=== PATIENT | male | born 1955 | race Two or more races ===

== ENCOUNTER 2024-10-29 10:02 | Day surgery (SDC) | payer MEDICARE, OTHER, SELFPAY ==
[2024-10-24 13:11] VITALS: BMI 29.8
[2024-10-29] VITALS (13 sets, daily range): BP systolic 119–156; BP diastolic 69–121; BMI 29.3
--- NOTE | 2024-10-29 11:12 | HP.FOC2 ---
Addendum entered and electronically signed by LINDA Nash 10/29/24 11:27:
Correction: After further review of patient's medications with his present he has been determined that he did take an oral steroid prep for his contrast allergy, stat IV Solu-Cortef canceled.
Original Note:
Focused History & Physical
Chief Complaint
HPI:
Chief Complaint: Peripheral arterial occlusive disease with right lower extremity debilitating claudication
HPI / Indication for Planned Procedure: This is a 69-year-old male with significant past medical history for angina, CABG, peripheral chill disease, type 2 diabetes, stroke, and kidney tumor reported to [facility] for scheduled bilateral
lower extremity angiogram with focus on right lower extremity and left femoral access with Dr. Delio Galaviz III for peripheral arterial disease and debilitating right lower extremity claudication. Patient denies recent hospitalization, trauma,
illness, or changes to medications since last seen in our office on 09/27/2024. Denies nausea, vomiting, fever, chills, cough, chest pain, and abdominal pain. He endorses he is at his baseline health. Of note patient does have a listed contrast dye
allergy with reaction of syncopal episode.
Relevant Past Medical History: Coronary Artery Disease, Diabetes, Hypertension, Stroke and Other (Kidney tumor)
Relevant Social History: Tobacco Use (Former tobacco user)
Relevant Past Surgical History: Positive for (CABG x 4, kidney tumor resection, cervical spine surgery)
Review of Systems
Review of Pertinent Systems: All Systems Negative
Medication
See Medication form for detailed medications: Yes
Medication List (including Herbals & OTC):
amiloride 5 mg tablet 5 mg PO TID 10/23/24
aspirin 81 mg tablet 81 mg PO DAILY 10/23/24
desonide 0.05 % topical cream 1 applic topical PRN PRN eczema 10/23/24
diltiazem HCl 240 mg capsule,extended release 24 hr 240 mg PO DAILY 10/23/24
eplerenone 50 mg tablet 50 mg PO HS 10/23/24
furosemide 40 mg tablet 40 mg PO DAILY 10/23/24
metformin 1,000 mg tablet 1,000 mg PO BID 10/23/24
metoprolol succinate 100 mg tablet,extended release 24 hr 100 mg PO DAILY 10/23/24
pantoprazole 40 mg tablet,delayed release 40 mg PO DAILY 10/23/24
repaglinide 1 mg tablet 1 mg PO TID 10/23/24
rosuvastatin 40 mg tablet 40 mg PO HS 10/23/24
semaglutide 2 mg/dose (8 mg/3 mL) subcutaneous pen injector (Ozempic) 2 mg SC .QSUNDAY 10/23/24
tobramycin 0.3 %-dexamethasone 0.1 % eye drops,suspension 1 drp ophthalmic (eye) HS 10/23/24
valsartan 320 mg tablet 320 mg PO DAILY 10/23/24
clopidogrel 75 mg tablet 75 mg PO DAILY 10/26/24
fluticasone propionate 50 mcg/actuation nasal spray,suspension 1 spray intranasal HSPRN PRN nasal congestion 10/26/24
isosorbide mononitrate 30 mg tablet,extended release 24 hr 30 mg PO HS 10/26/24
nitroglycerin 0.4 mg sublingual tablet 0.4 mg sublingual Q5-15M PRN chest pain 10/26/24
ranolazine 500 mg tablet,extended release,12 hr 500 mg PO BID 10/26/24
terbinafine HCl 1 % topical cream 1 applic topical PRN PRN antifungal 10/26/24
Medications Reviewed: Yes
Allergies and Reactions
Patient has Allergies: Yes
Noted Allergies and Reactions:
Allergy/AdvReac Type Severity Reaction Status Date / Time
Iodinated Contrast Media Allergy Syncopal Verified 10/29/24 11:11
episode
Pertinent Physical Exam
All Other Systems: Negative
Head/Neck: Normal
Lungs: Normal (Bilateral lungs CTA)
Heart: Normal
Abdomen: Normal
Extremities: Other (Nonpalpable distal bilateral pulses)
Neurological: Normal
Diagnosis / Assessment
Assessment: 69-year-old male who presents for scheduled procedure with Dr. Delio Galaviz of bilateral lower extremity angiogram with focus on right lower extremity for claudication and peripheral arterial occlusive disease.
Plan / Procedure
Plan: Will proceed with procedure as scheduled, patient endorses contrast dye allergy and indicates he did not receive any steroid prep but did take Benadryl this a.m., will provide stat IV Solu-Cortef.
Anesthesia/Sedation to be done by Anesthesia Provider: Yes
[2024-10-29 11:20] LABS: Glucose - Point of Care 169 mg/dl (70-99)
[2024-10-29] MEDS: NSS 500 IV (14:23)
--- NOTE | 2024-10-29 17:24 | W.SUR.PREOP ---
Pre-Operative Surgical Note
-
I have examined this patient prior to the performance of the scheduled procedure.
The patient's condition is unchanged from the time of the current History and
Physical and the patient is able to undergo the scheduled procedure.
[2024-10-29 17:47] LABS: Glucose - Point of Care 159 mg/dl (70-99)
--- NOTE | 2024-10-29 18:22 | OR.RPT ---
Operative Report
Operative Report
Date of Operation: 10/29/2024
Pre Op Diagnosis: Disabling bilateral lower extremity claudication
Post Op Diagnosis: Disabling bilateral lower extremity claudication
Procedure:
1.) Drug-coated balloon angioplasty of right superficial femoral artery (6 mm x 220 mm Lutonix DCB)
2.) Balloon angioplasty and stenting of right superficial femoral artery (overlapping Bard Life Stents, 6 mm x 150 mm distal; 6 mm x 120 mm proximal)
3.) Diagnostic aortobiiliac arteriogram
4.) Diagnostic right lower extremity arteriogram
5.) Diagnostic left lower extremity arteriogram
6.) Ultrasound-Guided percutaneous access to the left common femoral artery
Surgeon: Delio Galaviz III, MD
Staff Attorney: Haider Hassan MD PGY1
Anesthesia: Sedation with local
Fluoroscopy:
18.3 min
153 mGy
51.13 gy.cm2
Complications: None
Estimated Blood Loss: 20 cc
History and Indications for Procedure: 69-year-old male with peripheral arterial disease and prior endovascular interventions at an outside hospital. He developed disabling bilateral lower extremity claudication. He was taken to the operating room
for attempted endovascular revascularization.
Procedure in Detail: Quincy Byrd was correctly identified and placed supine on the operating table. After adequate induction of anesthesia the bilateral groins were prepped and draped in the usual sterile fashion. A timeout was performed with the
nursing and anesthesia staff confirming the patient's identity as well as the nature and laterality of the procedure.
The left common femoral artery was identified under ultrasound guidance. The artery was patent. The superior and inferior aspects of the femoral head were identified with radiographic guidance and marked at the skin level. The proposed puncture site
was infiltrated with local anesthesia. Under ultrasound guidance we accessed the left common femoral artery with a micropuncture needle and upsized to a 5 Fr sheath over a Bentson wire. The wire and a [employer] hook flush catheter were advanced into
the distal abdominal aorta and a diagnostic aorto-biiliac arteriogram was performed:
AORTO-ILIAC ARTERIOGRAM:
Aorta: Mild ectasia of the distal abdominal aorta. Patent. No significant stenosis identified.
Right common iliac artery: Patent with no significant stenosis identified
Right external iliac artery: Patent with no significant stenosis identified
Left common iliac artery: Patent with no significant stenosis identified
Left external iliac artery: Patent with no significant stenosis identified
Under roadmap guidance using a Glidewire and the mSeller hook catheter we selected the right common iliac artery and then the external iliac artery. A catheter was tracked up and over the aortic bifurcation and placed in the distal external iliac
artery. A diagnostic right lower extremity arteriogram was then performed which demonstrated the following:
RIGHT LOWER EXTREMITY:
Common femoral artery: Patent with no significant stenosis identified
Profunda femoral artery: Patent with no significant stenosis identified
Superficial femoral artery: Patent. Scattered areas of high-grade stenosis identified in the mid and distal segment
Popliteal artery: Patent with no significant stenosis identified
Anterior tibial artery: Patent stump but then occluded
Tibioperoneal trunk: Patent
Peroneal artery: Patent
Posterior tibial artery: Patent.
ENDOVASCULAR INTERVENTION: Systemic heparin was administered. Exchanged out for a 6 Fr 45 cm sheath over a Storq wire. Selected the superficial femoral artery under roadmap guidance with Quickcross catheter and glidewire. The SFA disease was crossed
with a Quickcross and Glidewire. The wire and catheter were advanced into the popliteal artery and subtraction angio confirmed proper position in the true lumen. Exchanged out for a Storq wire. A 6 mm x 220 mm Lutonix drug-coated angioplasty balloon
was placed across the superficial femoral artery stenosis under roadmap guidance. The balloon was inflated to nominal pressure, held in place for 3 minutes and then deflated and removed over the wire. Subsequent arteriogram demonstrated an improved
but suboptimal result with areas of dissection. I then treated this area with overlapping stents. A 6 mm x 150 mm LifeStent was positioned in the desired location in the distal superficial femoral artery and deployed. A 6 mm x 120 mm LifeStent
was then positioned in the desired location, overlapping with the first stent and extending proximally. A 6 mm angioplasty balloon was used to profile the entire length of the stents.
COMPLETION ARTERIOGRAM: Nice technical result. Patent superficial femoral artery stents with brisk flow and no residual stenosis identified. Tibial artery runoff was via the peroneal and posterior tibial arteries. The anterior tibial artery
appeared to be occluded.
Satisfied with this result we concluded the procedure. The sheath tip was pulled back into the left external iliac artery. Protamine was administered. A runoff arteriogram of the left lower extremity was then performed which demonstrated the
following:
LEFT LOWER EXTREMITY:
Common femoral artery: Patent with no significant stenosis identified
Profunda femoral artery: Patent with no significant stenosis identified
Superficial femoral artery: Stents patent with diffuse moderate to high-grade in-stent restenosis identified
Popliteal artery: Patent with no significant stenosis identified
Anterior tibial artery: Patent proximally but occluded thereafter
Tibioperoneal trunk: Patent
Peroneal artery: Patent
Posterior tibial artery: Patent
The sheath was secured in place with the plan to pull it in the recovery area. The patient tolerated the procedure well and was taken to the recovery area in stable condition. He had a palpable PT pulse on the right ankle at the conclusion of the
case.
Attestation: I was present and responsible for the entire procedure.
Signed:
Delio Galaviz III, MD
Vascular Surgery
[facility]
--- NOTE | 2024-10-29 20:00 | PTCARENOTE ---
Pt arrived to floor from PACU post B/L LE arteriogram with Drug-coated balloon angioplasty of right superficial femoral artery, Balloon angioplasty and stenting of right superficial femoral artery. Left groin site C/D/I. Doppler pulses confirmed
with SECOND RIGGER upon arrival to both B/L LE. Pt reports pain 8/10, PRN pain medication administered as ordered. pt instructed on bedrest protocol and laying flat for 2 hours. Pt verbalizes understanding. left wrist int infusing NSS@80ml/hr as ordered.
POX 93% on 2 LO2 NC. Call alvarenga in reach. Will continue to monitor.
[2024-10-29] MEDS: DILAUDID 0.5 MG IV (20:22)
[2024-10-29] MEDS: RANEXA EXTENDED RELEASE 500 MG PO (20:22)
[2024-10-29] MEDS: NSS 1000 IV (20:22)
[2024-10-29 21:30] LABS: Glucose - Point of Care 165 mg/dl (70-99)
[2024-10-29] MEDS: INSPRA 50 MG PO (22:14)
[2024-10-29] MEDS: MIDAMOR 5 MG PO (22:14)
[2024-10-29] MEDS: CRESTOR 40 MG PO (22:15)
[2024-10-29] MEDS: IMDUR (EXTENDED RELEASE) 30 MG PO (22:15)
--- NOTE | 2024-10-29 22:30 | PTCARENOTE ---
Pt now able to sit up, box lunch provided. Pt able to void in urinal without complication. Palpable pulses to B/L LE present. left groin site remains intact. Pt reports pain at tolerable level. Will continue to monitor.
[2024-10-30 03:00] VITALS: BP 123/64
[2024-10-30 06:00] VITALS: BMI 29.5
[2024-10-30 07:09] LABS: Glucose - Point of Care 188 mg/dl (70-99)
[2024-10-30 07:56] VITALS: BP 117/61
--- NOTE | 2024-10-30 08:32 | W.PN.VS ---
Today's Communication / Plan
-
Patient seen and examined at bedside with Dr. Delio Galaviz III, below plan reviewed with attending.
Assessment/Plan
-
Assessment: 69-year-old male with peripheral arterial disease, POD #1 Drug-coated balloon angioplasty of right superficial femoral artery (6 mm x 220 mm Lutonix DCB), balloon angioplasty and stenting of right superficial femoral artery (overlapping
Bard Life Stents, 6 mm x 150 mm distal; 6 mm x 120 mm proximal), diagnostic aortobiiliac arteriogram, diagnostic right lower extremity arteriogram, diagnostic left lower extremity arteriogram, ultrasound-Guided percutaneous access to the left common
femoral artery
Plan:
Patient stable for discharge to home, should continue DAPT regimen of Plavix 75 mg p.o. daily and aspirin 81 mg p.o. daily
Will have patient come back in short order for left lower extremity endovascular intervention with Dr. Delio Galaviz III
Subjective Data
-
Date of Service: October 30, 2024
Patient seen examined at bedside, offers no complaints. Denies left groin puncture site pain. Reports tolerating p.o. diet.
Objective Data
-
Vital Signs
Temp Pulse Resp BP Pulse Ox
98.2 F 83 17 117/61 95
10/30/24 07:56 10/30/24 07:56 10/30/24 07:56 10/30/24 07:56 10/30/24 07:56
Intake and Output
10/29/24 10/30/24 10/31/24
06:59 06:59 06:59
Intake Total 480 / 480
Output Total 450 / 450
Balance 30 / 30
Intake:
IV fluids (Total) 480 / 480
Output:
Urine, Voided 450 / 450
Physical Exam
-
No apparent distress, resting in bed comfortably
No tachycardia
No dyspnea on room air
ABD nontender, nondistended
Left groin puncture site CDI, no evidence of hematoma, all surrounding compartments soft
Left DP pulse palpable
[2024-10-30 08:34] LABS: Hematocrit 38.1 % (39.0-52.0); Hemoglobin 12.2 g/dL (13.0-18.0); Mean Corpuscular Hgb 27.1 pg (27.0-31.0); Mean Corpuscular Volume 84.5 fL (80.0-94.0); Mean Platelet Volume 13.8 fL (7.4-10.4); Platelet Count 181 10^3/uL (130-400); Red Blood Cell Count 4.51 10^6/uL (4.70-6.10); Red Cell Dist. Width 15.6 % (11.5-14.5); White Blood Cell Count 25.3 10^3/uL (4.8-10.8)
[2024-10-30] MEDS: NOVOLOG FLEXPEN-MODERATE RESISTANCE 1 UNITS SC (08:36)
[2024-10-30] MEDS: MIDAMOR 5 MG PO (08:37)
[2024-10-30] MEDS: DIOVAN 320 MG PO (08:37)
[2024-10-30] MEDS: PRANDIN 1 MG PO (08:37)
[2024-10-30] MEDS: LASIX 40 MG PO (08:38)
[2024-10-30] MEDS: PLAVIX 75 MG PO (08:38)
[2024-10-30] MEDS: ASPIR LOW (ENTERIC COATED) 81 MG PO (08:38)
[2024-10-30] MEDS: CARDIZEM CD 240 MG PO (08:38)
[2024-10-30] MEDS: RANEXA EXTENDED RELEASE 500 MG PO (08:38)
[2024-10-30] MEDS: PROTONIX 40 MG PO (08:38)
[2024-10-30] MEDS: TOPROL XL 100 MG PO (08:38)
--- NOTE | 2024-10-30 08:50 | W.DS.TRANS ---
DC Summary - Reference Librarian
-
Discharge Instructions:
Discharge Diagnosis/Procedures Right lower extremity angiogram with
intervention
Diet As tolerated,Diabetic, Carb Controlled
Activity No strenuous activity
Driving Restrictions No driving for 48 hours
Bathing Restrictions OK to Shower
Instructions:
Stand-Alone Forms: Vascular Surg Discharge Instr
Changes to Home Medications: Yes
Discharge Medications:
DC Medications w/original date entered in [employer]
amiloride 5 mg tablet 5 mg PO TID 10/23/24
aspirin 81 mg tablet 81 mg PO DAILY 10/23/24
desonide 0.05 % topical cream 1 applic topical PRN PRN eczema 10/23/24
diltiazem HCl 240 mg capsule,extended release 24 hr 240 mg PO DAILY 10/23/24
eplerenone 50 mg tablet 50 mg PO HS 10/23/24
furosemide 40 mg tablet 40 mg PO DAILY 10/23/24
metformin 1,000 mg tablet 1,000 mg PO BID 10/23/24
metoprolol succinate 100 mg tablet,extended release 24 hr 100 mg PO DAILY 10/23/24
pantoprazole 40 mg tablet,delayed release 40 mg PO DAILY 10/23/24
repaglinide 1 mg tablet 1 mg PO TID 10/23/24
rosuvastatin 40 mg tablet 40 mg PO HS 10/23/24
semaglutide 2 mg/dose (8 mg/3 mL) subcutaneous pen injector (Ozempic) 2 mg SC .QSUNDAY 10/23/24
tobramycin 0.3 %-dexamethasone 0.1 % eye drops,suspension 1 drp ophthalmic (eye) HS 10/23/24
valsartan 320 mg tablet 320 mg PO DAILY 10/23/24
clopidogrel 75 mg tablet 75 mg PO DAILY 10/26/24
isosorbide mononitrate 30 mg tablet,extended release 24 hr 30 mg PO HS 10/26/24
nitroglycerin 0.4 mg sublingual tablet 0.4 mg sublingual Q5-15M PRN chest pain 10/26/24
ranolazine 500 mg tablet,extended release,12 hr 500 mg PO BID 10/26/24
terbinafine HCl 1 % topical cream 1 applic topical PRN PRN antifungal 10/26/24
Home Medication Changes
Held for 48 hours post procedure:
metformin 1,000 mg tablet 1,000 mg PO BID 10/23/24
Pending Results: No
[2024-10-30 08:56] LABS: Blood Urea Nitrogen 19 mg/dl (9-20); Calcium 9.2 mg/dl (8.4-10.2); Carbon Dioxide 26 mmol/L (22-30); Chloride 105 mmol/L (98-107); Estimated Creatinine Clearance 58 ml/min; Glucose 178 mg/dl (70-99); Potassium 4.1 mmol/L (3.5-5.1); Sodium 141 mmol/L (135-145); eGFR > 60.00
[2024-10-30] MEDS: TYLENOL 650 MG PO (09:52)
--- NOTE | 2024-10-30 09:58 | CM ---
CM reviewed chart, patient seen bedside, initial assessment completed. Patient resides with his in a multiple story home, four steps to enter. Patient uses a cane for ambulation, reports he is current with [facility], believes through [facility],
will send [facility] referral. Patient denies SNF. Patient confirms PCP Elysia Alcantar, pharmacy [facility]. Patient for discharge today, confirms transportation home, denies needs. CM will continue to follow for all discharge planning needs.
Plan; home no needs.
== END 2024-10-30 10:38 | disposition home or self-care (01) ==
LOC: CATH 10:02
PROVIDERS: Nurse Practitioner; ATTENDING PHYSICIAN Surgery Vascular Surgery; FAMILY PHYSICIAN Family Medicine; OTHER PHYSICIAN Internal Medicine Cardiovascular Disease
DX: I70.213 Atherosclerosis of native arteries of extremities with intermittent claudication, bilateral legs (principal); Z95.1 Presence of aortocoronary bypass graft; E11.51 Type 2 diabetes mellitus with diabetic peripheral angiopathy without gangrene; Z91.041 Radiographic dye allergy status; R55 Syncope and collapse; Z87.891 Personal history of nicotine dependence; Z79.899 Other long term (current) drug therapy; Z79.84 Long term (current) use of oral hypoglycemic drugs; Z79.85 Long-term (current) use of injectable non-insulin antidiabetic drugs; Z79.82 Long term (current) use of aspirin; Z79.02 Long term (current) use of antithrombotics/antiplatelets; T82.856D Stenosis of peripheral vascular stent, subsequent encounter
CPT/HCPCS: 37226; 75625; 75716; 80048; 82962; 85027; C1725; C1769; C1876; C1894; C2623; Q9967

== ENCOUNTER 2025-01-11 12:48 | Day surgery (SDC) | payer MEDICARE, OTHER, SELFPAY ==
[2025-01-11] VITALS (9 sets, daily range): BP systolic 139–166; BP diastolic 67–88; BMI 30.5
[2025-01-11 14:29] LABS: Glucose - Point of Care 169 mg/dl (70-99)
[2025-01-11 14:31] LABS: APTT 31.4 Sec (23.4-35.0); INR 1.03; PT 13.8 Sec (11.4-14.6)
[2025-01-11 14:34] LABS: Hematocrit 37.1 % (39.0-52.0); Hemoglobin 11.8 g/dL (13.0-18.0); Mean Corp Hgb Conc. 31.8 g/dL (33.0-37.0); Mean Corpuscular Volume 81.7 fL (80.0-94.0); Platelet Count 190 10^3/uL (130-400); Red Cell Dist. Width 14.9 % (11.5-14.5)
[2025-01-11 14:46] LABS: Blood Urea Nitrogen 17 mg/dl (9-20); Calcium 9.9 mg/dl (8.4-10.2); Carbon Dioxide 24 mmol/L (22-30); Chloride 108 mmol/L (98-107); Estimated Creatinine Clearance 99 ml/min; Glucose 181 mg/dl (70-99); Potassium 4.0 mmol/L (3.5-5.1); Sodium 136 mmol/L (135-145); eGFR > 60.00
--- NOTE | 2025-01-11 15:57 | HP.FOC2 ---
Focused History & Physical
Chief Complaint
HPI:
Chief Complaint: Peripheral arterial occlusive disease with left lower extremity debilitating claudication
HPI / Indication for Planned Procedure: This is a 69-year-old male with significant past medical history for stroke, angina, CABG, peripheral chill disease, type 2 diabetes, stroke, and kidney tumor reported to [facility] for scheduled
left lower extremity angiogram with with Dr. Delio Galaviz III for peripheral arterial disease and debilitating left lower extremity claudication. Patient is status post drug-coated balloon angioplasty of right superficial femoral artery (6 mm x
220 mm Lutonix DCB), balloon angioplasty and stenting of right superficial femoral artery (overlapping Bard Life Stents, 6 mm x 150 mm distal; 6 mm x 120 mm proximal), diagnostic aortobiiliac arteriogram, diagnostic right lower extremity
arteriogram, and diagnostic left lower extremity arteriogram on 10/29/2024. Plan following the procedure was to bring patient back in short order for left lower extremity angiogram, however he unfortunately suffered a stroke and was admitted at an
outside hospital for workup. He indicates that his symptoms was garbled speech/aphasia, the stroke occurred in early November. He denies any residual signs/symptoms and his speech has returned to baseline. Denies nausea, vomiting, fever, chills,
cough, chest pain, and abdominal pain. He endorses he is at his baseline health.
Relevant Past Medical History: Coronary Artery Disease, Diabetes, Hypertension, Stroke and Other (Kidney tumor)
Relevant Social History: Tobacco Use (Former tobacco smoker)
Relevant Past Surgical History: Positive for (CABG x 4, kidney tumor resection, cervical spine surgery)
Review of Systems
Review of Pertinent Systems: All Systems Negative
Medication
See Medication form for detailed medications: Yes
Medication List (including Herbals & OTC):
amiloride 5 mg tablet 5 mg PO TID 10/23/24
diltiazem HCl 240 mg capsule,extended release 24 hr 240 mg PO DAILY 10/23/24
eplerenone 50 mg tablet 50 mg PO HS 10/23/24
furosemide 40 mg tablet 40 mg PO DAILY 10/23/24
metformin 1,000 mg tablet 1,000 mg PO BID 10/23/24
Held on 10/30/24. Instructions: Resume on 11/01/24.
metoprolol succinate 100 mg tablet,extended release 24 hr 100 mg PO DAILY 10/23/24
pantoprazole 40 mg tablet,delayed release 40 mg PO DAILY 10/23/24
repaglinide 1 mg tablet 1 mg PO TID 10/23/24
rosuvastatin 40 mg tablet 40 mg PO HS 10/23/24
semaglutide 2 mg/dose (8 mg/3 mL) subcutaneous pen injector (Ozempic) 2 mg SC SCOTT 10/23/24
valsartan 320 mg tablet 320 mg PO DAILY 10/23/24
clopidogrel 75 mg tablet 75 mg PO DAILY 10/26/24
isosorbide mononitrate 30 mg tablet,extended release 24 hr 30 mg PO HS 10/26/24
nitroglycerin 0.4 mg sublingual tablet 0.4 mg sublingual Q5-15M PRN chest pain 10/26/24
ranolazine 500 mg tablet,extended release,12 hr 500 mg PO BID 10/26/24
terbinafine HCl 1 % topical cream 1 applic topical PRN PRN feet 01/09/25
desonide 0.05 % topical cream 1 applic topical DAILY PRN rosacea 01/11/25
isosorbide mononitrate 30 mg tablet,extended release 24 hr 30 mg PO DAILY 01/11/25
Medications Reviewed: Yes
Allergies and Reactions
Patient has Allergies: Yes
Noted Allergies and Reactions:
Allergy/AdvReac Type Severity Reaction Status Date / Time
Iodinated Contrast Media Allergy Syncopal Verified 01/09/25 10:45
episode
Pertinent Physical Exam
All Other Systems: Negative
Head/Neck: Normal
Lungs: Normal (Bilateral lungs clear to auscultation)
Heart: Normal (Regular rate and rhythm)
Abdomen: Normal (Nontender and nondistended)
Extremities: Other (Unable to palpate bilateral distal pulses)
Neurological: Normal
Diagnosis / Assessment
Assessment: 69-year-old male who presents for scheduled procedure with Dr. Delio Galaviz of left lower extremity angiogram for claudication and peripheral arterial occlusive disease.
Plan / Procedure
Plan: Will proceed with procedure as scheduled
Anesthesia/Sedation to be done by Anesthesia Provider: Yes
--- NOTE | 2025-01-11 17:20 | W.SUR.POST ---
Surgical Immediate Post Op
Note
Pre Op Diagnosis: Peripheral arterial disease
Post Op Diagnosis: Peripheral arterial disease
Procedure Performed: RLE angiogram. SFA in-stent stenosis. Angioplasty with DCB.
Primary Surgeon: Delio Galaviz III, MD
Secondary Surgeons: Slim Salazar MD
Anesthesia: see anesthesia note
Estimated Blood Loss: 2 cc
Fluids: see anesthesia note
Drains/Shunts: None
Specimens/Cultures: None
Doppler/Duplex/Angio (Y/N): Y
Complications: none
Operative Findings: RLE angiogram. SFA in-stent stenosis. Angioplasty with DCB.
[2025-01-11 17:50] LABS: Glucose - Point of Care 154 mg/dl (70-99)
[2025-01-11] MEDS: LOW STRENGTH ASPIRIN 81 MG PO (18:30)
[2025-01-11] MEDS: SUBLIMAZE 25 MCG IV (18:42)
--- NOTE | 2025-01-11 19:00 | PTCARENOTE ---
pt admitted from pacu to room 2108. right groin site CDI. bilateral dp pulses by doppler. pt reports chronic back pain. pt pulled over from stretcher to bed. vitals obtained.
--- NOTE | 2025-01-11 19:00 | PTCARENOTE ---
1835 patient c/o of chronic back pain that radiated to left abdomen. Patient stated that this happens occasionally when lying in a flat position. Made Leeanne GUERRERO aware via tiger text.
184 Leeanne GUERRERO at patient bedside to assess and requested that Fentanyl Iv be given as per orders.
1841 Fentanyl 25 mcg iv given-see MAR for c/o of back pain- a 10 out of 10 pain.
185 Patient states that pain is a 4 out of 10 and much improved.
[2025-01-11] MEDS: PRANDIN PO (19:43)
[2025-01-11] MEDS: NSS 1000 IV (19:50)
--- NOTE | 2025-01-11 20:00 | PTCARENOTE ---
Addendum entered by Odalis Fischer RN 01/12/25 04:45:
pt on bedrest until midnight, HOB can be at no more than 30 degrees starting at 20:00. Pt AOx3, bed in a low position, call light in reach, care ongoing
Original Note:
01/11 Pt is a 69-year-old male post Left Lower Extremity Aortic Bi-Iliac Angiogram Angiogram/Angioplasty for PAD & debilitating left lower extremity claudication. R groin entry covered with 4x4 and Tegaderm. Arrived on 2S at 18:30. PMH Alzheimer,
Back Pain, difficulty with balance, Neuropathy, stroke (CVA 2010, 12/19 stroke with left sided weakness), PNA, TB, angina, CABG, PAD, type 2 diabetes, HTN, HLD [place], GERD and kidney stones & tumor, arthritis, Osteoarthritis, Eczema, Impaired vision,
Skin Cancer, & Anxiety Pt is status post drug-coated balloon angioplasty of right superficial femoral artery (6 mm x 220 mm Lutonix DCB), balloon angioplasty and stenting of right superficial femoral artery (overlapping Bard Life Stents, 6 mm x 150
mm distal; 6 mm x 120 mm proximal), diagnostic aortobiiliac arteriogram, diagnostic right lower extremity arteriogram, and diagnostic left lower extremity arteriogram on 10/29/2024. Plan following the procedure was to bring patient back in short
order for left lower extremity angiogram, however he unfortunately suffered a stroke and was admitted at an outside hospital for workup. He indicates that his symptoms was garbled speech/aphasia, the stroke occurred in early November. He denies any
residual signs/symptoms and his speech has returned to baseline.
[2025-01-11] MEDS: DILAUDID 0.5 MG IV (20:10)
[2025-01-11] MEDS: RANEXA EXTENDED RELEASE 500 MG PO (20:10)
[2025-01-11] MEDS: IMDUR (EXTENDED RELEASE) 30 MG PO (20:10)
[2025-01-11] MEDS: HEPARIN 5000 UNITS SC (20:10)
[2025-01-11 22:42] LABS: Glucose - Point of Care 168 mg/dl (70-99)
[2025-01-11] MEDS: MIDAMOR 5 MG PO (22:45)
[2025-01-11] MEDS: INSPRA 50 MG PO (22:45)
[2025-01-11] MEDS: CRESTOR 40 MG PO (22:45)
[2025-01-12] MEDS: DILAUDID 0.5 MG IV (01:00)
[2025-01-12 03:27] VITALS: BP 144/71
[2025-01-12] MEDS: TYLENOL 650 MG PO (05:00)
[2025-01-12 07:10] VITALS: BP 141/75
[2025-01-12 07:56] LABS: Glucose - Point of Care 129 mg/dl (70-99)
[2025-01-12] MEDS: NOVOLOG FLEXPEN-MODERATE RESISTANCE SC (08:08)
[2025-01-12] MEDS: HEPARIN 5000 UNITS SC (08:20)
[2025-01-12] MEDS: RANEXA EXTENDED RELEASE 500 MG PO (08:21)
[2025-01-12] MEDS: PLAVIX 75 MG PO (08:23)
[2025-01-12] MEDS: DIOVAN 320 MG PO (08:27)
[2025-01-12] MEDS: PRANDIN 1 MG PO ×2 (08:27→11:41)
[2025-01-12] MEDS: PROTONIX 40 MG PO (08:27)
[2025-01-12] MEDS: LOW STRENGTH ASPIRIN 81 MG PO (08:27)
[2025-01-12] MEDS: MIDAMOR 5 MG PO (08:27)
[2025-01-12] MEDS: TOPROL XL 100 MG PO (08:28)
[2025-01-12] MEDS: CARDIZEM CD 240 MG PO (08:28)
[2025-01-12] MEDS: LASIX 40 MG PO (08:28)
[2025-01-12] MEDS: ROXICODONE 5 MG PO (08:31)
--- NOTE | 2025-01-12 09:08 | W.PN.VS ---
Today's Communication / Plan
-
Patient seen and examined at bedside with attending Dr. Odom, below plan reviewed with attending.
Assessment/Plan
-
Assessment: 69-year-old male with peripheral arterial disease, POD #1 left lower extremity angiogram with intervention
Plan:
Patient stable for discharge to home, should continue DAPT regimen of Plavix 75 mg p.o. daily and aspirin 81 mg p.o. daily
Subjective Data
-
Date of Service: January 12, 2025
Patient seen and examined at bedside, offers no complaints. Denies nausea, vomiting, fever, and chills. Does endorsed continued intermittent left-sided lower back pain, which is unchanged from his chronic back pain and well-managed currently.
Reports eagerness for discharge to home.
Objective Data
-
Vital Signs
Temp Pulse Resp BP Pulse Ox
97.9 F 68 14 141/75 92
01/12/25 07:10 01/12/25 07:10 01/12/25 07:10 01/12/25 07:10 01/12/25 07:10
Intake and Output
01/11/25 01/12/25 01/13/25
06:59 06:59 06:59
Intake Total 230 / 230 480 / 480
Output Total 500 / 500
Balance 230 / 230 -20 / -20
Intake:
Oral fluids 30 / 30 480 / 480
IV fluids (Total) 200 / 200
normasol 200 / 200
Output:
Urine, Voided 500 / 500
Lab Results
01/11/25 14:18
01/11/25 14:18
Calcium 9.9 mg/dl (8.4-10.2) 01/11/25 14:18
Physical Exam
-
No apparent distress, resting in bed comfortably
No tachycardia
No dyspnea on room air
ABD nontender, nondistended
Right groin puncture site CDI, no evidence of hematoma, all surrounding compartments soft
Bilateral feet warm
--- NOTE | 2025-01-12 09:15 | W.DS.TRANS ---
DC Summary - Rn Bsn
-
Discharge Instructions:
Discharge Diagnosis/Procedures Left lower extremity angiogram with intervention
Diet As tolerated
Activity No strenuous activity
Driving Restrictions No driving for 48 hours
Bathing Restrictions OK to Shower
Others Tests Our office receptionist scheduler will call you Tuesday (
2024) with your repeat arterial ultrasound
appointment
Instructions:
Stand-Alone Forms: Vascular Surg Discharge Instr
Changes to Home Medications: Yes
Discharge Medications:
DC Medications w/original date entered in [facility]
amiloride 5 mg tablet 5 mg PO TID 10/23/24
diltiazem HCl 240 mg capsule,extended release 24 hr 240 mg PO DAILY 10/23/24
eplerenone 50 mg tablet 50 mg PO HS 10/23/24
furosemide 40 mg tablet 40 mg PO DAILY 10/23/24
metformin 1,000 mg tablet 1,000 mg PO BID 10/23/24
Held on 01/12/25. Instructions: Resume on 01/15/25.
metoprolol succinate 100 mg tablet,extended release 24 hr 100 mg PO DAILY 10/23/24
pantoprazole 40 mg tablet,delayed release 40 mg PO DAILY 10/23/24
repaglinide 1 mg tablet 1 mg PO TID 10/23/24
rosuvastatin 40 mg tablet 40 mg PO HS 10/23/24
semaglutide 2 mg/dose (8 mg/3 mL) subcutaneous pen injector (Ozempic) 2 mg SC SCOTT 10/23/24
valsartan 320 mg tablet 320 mg PO DAILY 10/23/24
clopidogrel 75 mg tablet 75 mg PO DAILY 10/26/24
isosorbide mononitrate 30 mg tablet,extended release 24 hr 30 mg PO HS 10/26/24
nitroglycerin 0.4 mg sublingual tablet 0.4 mg sublingual Q5-15M PRN chest pain 10/26/24
ranolazine 500 mg tablet,extended release,12 hr 500 mg PO BID 10/26/24
terbinafine HCl 1 % topical cream 1 applic topical PRN PRN feet 01/09/25
desonide 0.05 % topical cream 1 applic topical DAILY PRN rosacea 01/11/25
isosorbide mononitrate 30 mg tablet,extended release 24 hr 30 mg PO DAILY 01/11/25
aspirin 81 mg chewable tablet 81 mg PO DAILY #90 tabs 01/12/25
Home Medication Changes
Added:
aspirin 81 mg chewable tablet 81 mg PO DAILY #90 tabs 01/12/25
Pending Results: No
[2025-01-12 11:10] VITALS: BP 137/73
[2025-01-12 11:18] LABS: Glucose - Point of Care 174 mg/dl (70-99)
[2025-01-12] MEDS: NOVOLOG FLEXPEN-MODERATE RESISTANCE 1 UNITS SC (11:42)
--- NOTE | 2025-01-12 14:40 | CM ---
Patient has been medically cleared for discharge to home with no additional skilled services. CASSANDRA explained and signed. Patient has arranged for transport home.
--- NOTE | 2025-01-14 19:14 | OR.RPT ---
Operative Report
Operative Report
Date of Operation: 01/11/2025
Pre Op Diagnosis:
1. Peripheral arterial occlusive disease
2. In-stent restenosis left superficial femoral artery stents
Post Op Diagnosis:
1. Peripheral arterial occlusive disease
2. In-stent restenosis left superficial femoral artery stents
Procedure:
1.) Drug-coated balloon angioplasty of in-stent restenosis, left superficial femoral artery stents (6 mm x 150 mm Lutonix DCB)
2.) Diagnostic aortobiiliac arteriogram
3.) Diagnostic left lower extremity arteriogram
4.) Ultrasound-guided percutaneous access to the right common femoral artery
Surgeon: Delio Galaviz III, MD
Punchboard Assembler: Slim Salazar MD PGY-6
Anesthesia: Sedation with local
Fluoroscopy:
13.6 min
134 mGy
42.75 gy.cm2
Complications: None
Estimated Blood Loss: Less than 20 cc
History and Indications for Procedure: 69-year-old male with prior left superficial femoral artery stents placed at an outside hospital. Arterial studies suggested in-stent restenosis. He was brought to the operating room for
Procedure in Detail: Quincy Byrd was correctly identified and placed supine on the operating table. After adequate induction of anesthesia the bilateral groins were prepped and draped in the usual sterile fashion. A timeout was performed with the
nursing and anesthesia staff confirming the patient's identity as well as the nature and laterality of the procedure.
The right common femoral artery was identified under ultrasound guidance. The artery was patent. The superior and inferior aspects of the femoral head were identified with radiographic guidance and marked at the skin level. The proposed puncture
site was infiltrated with local anesthesia. Under ultrasound guidance we accessed the right common femoral artery with a micropuncture needle and upsized to a 5 Fr sheath over a Bentson wire. The wire and a ShepherInspirotec hook flush catheter were
advanced into the distal abdominal aorta and a diagnostic aorto-biiliac arteriogram was performed:
AORTO-ILIAC ARTERIOGRAM:
Aorta: Patent with no significant stenosis identified
Right common iliac artery: Patent with no significant stenosis identified
Right external iliac artery: Patent with no significant stenosis identified
Left common iliac artery: Patent with no significant stenosis identified
Left external iliac artery: Patent with no significant stenosis identified
Under roadmap guidance using a Glidewire and the SheRivalSofterInspirotec hook catheter we selected the left common iliac artery and then the external iliac artery. A catheter was tracked up and over the aortic bifurcation and placed in the distal external iliac
artery. A diagnostic left lower extremity arteriogram was then performed which demonstrated the following:
LEFT LOWER EXTREMITY:
Common femoral artery: Patent with no significant stenosis identified
Profunda femoral artery: Patent with no significant stenosis identified
Superficial femoral artery: Patent. Patent stents. Diffuse in-stent restenosis identified. Calcified plaque in the distal SFA/above-knee popliteal artery with no significant stenosis identified
Popliteal artery: Patent. No significant stenosis identified
Anterior tibial artery: Patent proximally but occluded thereafter
Tibioperoneal trunk: Patent
Peroneal artery: Patent
Posterior tibial artery: Patent as the dominant tibial artery runoff. Continues across the ankle to form plantar branches in the foot.
ENDOVASCULAR INTERVENTION: Systemic heparin was administered. Exchanged out for a 6 Fr 45 cm sheath over a Storq wire. Selected the superficial femoral artery under roadmap guidance with Quickcross catheter and glidewire. The in-stent restenosis was
crossed. The wire and catheter were advanced into the popliteal artery and subtraction angio confirmed proper position in the true lumen. Exchanged out for a Storq wire. A 6 mm x 150 mm Lutonix drug-coated angioplasty balloon was positioned in the
desired location. The balloon was inflated to nominal pressure and held in place for a 3 minutes inflation. Subsequent arteriogram demonstrated an improved result with patent SFA stents and no significant residual stenosis identified. Brisk flow
was seen through the superficial femoral artery and popliteal artery.
Satisfied with this result we concluded the procedure. The sheath tip was pulled back into the right external iliac artery. Protamine was administered. The sheath was secured in place with the plan to pull it in the recovery room..
The patient tolerated the procedure well and was taken to the recovery area in stable condition.
Attestation: I was present and responsible for the entire procedure.
Signed:
Delio Galaviz III, MD
Vascular Surgery
[facility]
== END 2025-01-12 14:35 | disposition home or self-care (01) ==
LOC: CATH 12:48
PROVIDERS: ATTENDING PHYSICIAN Surgery Vascular Surgery; OTHER PHYSICIAN Internal Medicine Cardiovascular Disease; PRIMARYCARE PHYSICIAN Family Medicine
DX: E11.51 Type 2 diabetes mellitus with diabetic peripheral angiopathy without gangrene (principal); I70.212 Atherosclerosis of native arteries of extremities with intermittent claudication, left leg; T82.856D Stenosis of peripheral vascular stent, subsequent encounter; Y83.1 Surgical operation with implant of artificial internal device as the cause of abnormal reaction of the patient, or of later complication, without mention of misadventure at the time of the procedure; I25.10 Atherosclerotic heart disease of native coronary artery without angina pectoris; I10 Essential (primary) hypertension; Z95.1 Presence of aortocoronary bypass graft; Z95.5 Presence of coronary angioplasty implant and graft; Z86.73 Personal history of transient ischemic attack (TIA), and cerebral infarction without residual deficits; Z87.891 Personal history of nicotine dependence; Z79.84 Long term (current) use of oral hypoglycemic drugs; Z79.85 Long-term (current) use of injectable non-insulin antidiabetic drugs; Z79.02 Long term (current) use of antithrombotics/antiplatelets; Z79.82 Long term (current) use of aspirin
CPT/HCPCS: 37224; 75625; 75710; 80048; 82962; 85027; 85610; 85730; C1769; C1894; C2623; Q9967

== ENCOUNTER → 2025-02-08 13:00 | Outpatient (REF) | payer MEDICARE, OTHER, SELFPAY | LOC: RAD 13:00 | PROVIDERS: ATTENDING PHYSICIAN Surgery Vascular Surgery; FAMILY PHYSICIAN Family Medicine | DX: I77.9 Disorder of arteries and arterioles, unspecified (principal) | CPT/HCPCS: 93922; 93925 ==